=== PATIENT | male | born 1940 | race Caucasian/White ===

== ENCOUNTER 2019-09-04 10:30 | Day surgery (SDC) | payer MEDICARE, OTHER ==
[~2019-09-04] VITALS: Ht 170.2 cm; Wt 81.0 kg
[2019-09-04 10:48] VITALS: BP 135/83
[2019-09-04] MEDS ORDERED: GABA300C10 PO (11:09)
[2019-09-04] MEDS ORDERED: CARB1TAB22 PO (11:09)
[2019-09-04] MEDS ORDERED: OMEP40CA42 PO (11:09)
[2019-09-04] MEDS ORDERED: VORT20TA PO (11:09)
[2019-09-04] MEDS ORDERED: ALPR0.5T6 PO (11:09)
[2019-09-04] MEDS ORDERED: l-thyroxine (11:09)
[2019-09-04] MEDS ORDERED: VALS80TA30 PO (11:09)
[2019-09-04] MEDS ORDERED: DILT180C2 PO (11:09)
[2019-09-04] MEDS ORDERED: LACTATED RINGERS 1,000 ML IV SCH (11:26)
[2019-09-04 11:56] LABS: MEAN CORPUSCULAR HEMOGLOBIN 33.9 pg (27.5-34.5); MEAN CORPUSCULAR HGB CONC 33.2 g/dL (33.2-36.2); MEAN CORPUSCULAR VOLUME 102.1 fL (81-97); MEAN PLATELET VOLUME 6.9 fL (7.4-10.4); PLATELET COUNT 216 x10^3/uL (130-400); RED BLOOD COUNT 4.05 x10^6/uL (4.38-5.82); RED CELL DISTRIBUTION WIDTH 15.3 % (9.4-14.8)
[2019-09-04 12:02] LABS: CHLORIDE 110 mmol/L (98-107)
[2019-09-04 12:10] LABS: ALBUMIN 3.5 g/dL (3.4-5.0); ALKALINE PHOSPHATASE 88 U/L (45-117); ANION GAP 8 mmol/L (5-15); BILIRUBIN,TOTAL 0.6 mg/dL (0.2-1.0); CALCIUM 8.7 mg/dL (8.5-10.1); CREATININE 0.75 mg/dL (0.7-1.3); TOTAL PROTEIN 6.8 g/dL (6.4-8.2)
[2019-09-04 12:14] LABS: ALANINE AMINOTRANSFERASE 7 U/L (12-78)
[2019-09-04] MEDS ORDERED: PROPOFOL 10 MG/ML, 20ML ONE ×2 (12:54→12:59)
[2019-09-04 13:03] LABS: MD YES
[2019-09-04 13:07] LABS: BAND#(MANUAL) 0.08 x10^3/uL; BANDS%(MANUAL) 3 % (0-7); BASOS#(MANUAL) 0.03 x10^3/uL (0-0.1); BASOS% (MANUAL) 1 % (0-1); EOS#(MANUAL) 0.43 x10^3/uL (0.0-0.4); EOS% (MANUAL) 17 % (1-7); LYMPH#(MANUAL) 0.88 x10^3/uL (1-3.4); LYMPHS% (MANUAL) 35 % (22-44); MONOS% (MANUAL) 8 % (2-9); SEGS% (MANUAL) 36 % (42-75)
[2019-09-04 13:08] LABS: <PLATELET ESTIMATE> ADEQUATE; <PLT MORPHOLOGY> NORMAL PLT MORPH; <RBC MORPHOLOGY> NORMAL
[2019-09-04] MEDS ORDERED: PROPOFOL 50 ML ONE (13:10)
== END 2019-09-04 15:20 | disposition home or self-care (01) ==
LOC: OUT 10:30
PROVIDERS: ATTEND Internal Medicine
DX: K59.00 Constipation, unspecified (principal); D12.2 Benign neoplasm of ascending colon; K57.30 Diverticulosis of large intestine without perforation or abscess without bleeding; K21.9 Gastro-esophageal reflux disease without esophagitis; K63.89 Other specified diseases of intestine; I48.91 Unspecified atrial fibrillation; I10 Essential (primary) hypertension; F41.9 Anxiety disorder, unspecified; E78.5 Hyperlipidemia, unspecified; Z79.899 Other long term (current) drug therapy; Z86.010 Personal history of colon polyps; Z87.891 Personal history of nicotine dependence; Z88.8 Allergy status to other drugs, medicaments and biological substances; Z90.49 Acquired absence of other specified parts of digestive tract; Z98.890 Other specified postprocedural states; Z80.0 Family history of malignant neoplasm of digestive organs; Z82.3 Family history of stroke; Z82.49 Family history of ischemic heart disease and other diseases of the circulatory system
CPT/HCPCS: 36415; 45385; 80053; 85025; 88305; 93005; J2704; J7120